=== PATIENT | female | born 1950 | race Caucasian/White ===

== ENCOUNTER 2020-11-19 12:20 | Day surgery (SDC) | payer MEDICARE, OTHER ==
[2020-11-19] MEDS ORDERED: LIDOCAINE HCL 2% 100 MG/5 ML IJ ONE (12:21)
[2020-11-19] MEDS ORDERED: Depo-Medrol 40 MG/ML IM ONE (12:21)
[2020-11-19] MEDS ORDERED: Pepcid 20 MG VIAL IV ONE (13:48)
[2020-11-19] MEDS ORDERED: DIPRIVAN 200 MG/20 ML IV ONE ×2 (14:17→14:31)
[2020-11-19] MEDS ORDERED: Ketamine HCl 50 MG/ML ONE (14:17)
[2020-11-19] MEDS ORDERED: MORPHINE SULFATE 10 MG/ML ONE (14:45)
[2020-11-19] MEDS ORDERED: Lactated Ringers 1,000 ML IV ONE (15:04)
--- NOTE | 2020-11-19 16:47 | XRAY ---
Indication: Bilateral L4-S1 MBB. Intraoperative fluoroscopy was provided for 55 seconds. 4 digital spot images submitted for interpretation demonstrates posterior needle tips projecting over the expected left and right L4-S1 nerve roots. Correlate with intraoperative findings/report. Incidental incompletely visualized multilevel bilateral posterior pedicle screws, Cardenas rods, and intervertebral spacers.
--- NOTE | 2020-11-19 16:53 | XRAY ---
55 seconds of fluoroscopy was used during surgery for a bilateral L4-L5 and L5-S1 MBB.
== END 2020-11-19 14:57 | disposition home or self-care (01) ==
LOC: SDC-PAIN 12:20
PROVIDERS: ATTEND Psychiatry & Neurology Pain Medicine
DX: M47.816 Spondylosis without myelopathy or radiculopathy, lumbar region (principal); I10 Essential (primary) hypertension; M79.7 Fibromyalgia; E03.9 Hypothyroidism, unspecified; Z79.899 Other long term (current) drug therapy
CPT/HCPCS: 64493; 64494; 72020; 77002; J1030; J2270; J2704

== ENCOUNTER 2020-12-17 08:48 | Day surgery (SDC) | payer MEDICARE, OTHER ==
[2020-12-17] MEDS ORDERED: BUPIVACAINE 0.5% VIAL IJ ONE (08:49)
[2020-12-17] MEDS ORDERED: Depo-Medrol 40 MG/ML IM ONE (08:49)
[2020-12-17] MEDS ORDERED: DIPRIVAN 200 MG/20 ML IV ONE ×2 (10:40→10:49)
[2020-12-17] MEDS ORDERED: Ketamine HCl 50 MG/ML ONE (10:40)
[2020-12-17] MEDS ORDERED: Lactated Ringers 1,000 ML IV ONE (11:01)
--- NOTE | 2020-12-17 11:47 | XRAY ---
Indication: Left hip injection. Intraoperative fluoroscopy provided for 16 seconds. Single digital spot image submitted for interpretation demonstrates needle tip projecting just lateral to the left greater trochanter. Small amount of contrast injected for needle tip placement. Correlate with intraoperative findings/report.
--- NOTE | 2020-12-17 11:50 | XRAY ---
Indication: Right hip injection. Intraoperative fluoroscopy provided for 22 seconds. Single digital spot image submitted for interpretation demonstrates needle tip projecting just lateral to the right greater trochanter. Small amount of contrast injected for needle tip placement. Correlate with intraoperative findings/report.
--- NOTE | 2020-12-17 11:50 | XRAY ---
16 seconds fluoroscopy time in surgery for injection of the greater trochanter of the right hip.
--- NOTE | 2020-12-17 11:59 | XRAY ---
22 seconds fluoroscopy time in surgery for injection of the greater trochanter of the right hip.
== END 2020-12-17 11:14 | disposition home or self-care (01) ==
LOC: SDC-PAIN 08:48
PROVIDERS: ATTEND Psychiatry & Neurology Pain Medicine
DX: M70.62 Trochanteric bursitis, left hip (principal); M70.61 Trochanteric bursitis, right hip; I10 Essential (primary) hypertension; M79.7 Fibromyalgia; E03.9 Hypothyroidism, unspecified; Z79.899 Other long term (current) drug therapy
CPT/HCPCS: 20610; 73501; 77002; J1030; J2704; Q9966

== ENCOUNTER 2021-02-11 09:33 | Day surgery (SDC) | payer MEDICARE, OTHER ==
[2021-02-11] MEDS ORDERED: Depo-Medrol 40 MG/ML IM ONE (09:34)
[2021-02-11] MEDS ORDERED: Sodium Chloride 0.9(Preservative Free) 10 ML IJ ONE (09:34)
[2021-02-11] MEDS ORDERED: DIPRIVAN 200 MG/20 ML IV ONE ×2 (10:28→10:50)
[2021-02-11] MEDS ORDERED: TORAdol 30 mg Injection ONE (10:56)
--- NOTE | 2021-02-11 11:27 | XRAY ---
Indication: Right L4-S1 transforaminal MARIAM. Intraoperative fluoroscopy provided for 1 minute 24 seconds. Single digital spot image submitted for interpretation demonstrates posterior midline needle tip projecting over mid to inferior sacrum. Small amount of contrast injected for needle tip placement. Correlate with intraoperative findings/report. Incidental incompletely visualized bilateral lumbosacral fusion hardware.
--- NOTE | 2021-02-11 11:29 | XRAY ---
1 minute and 24 seconds fluoroscopy time in surgery for right L4-S1 transforaminal MARIAM.
[2021-02-11] MEDS ORDERED: Lactated Ringers 1,000 ML IV ONE (16:10)
== END 2021-02-11 11:04 | disposition home or self-care (01) ==
LOC: SDC-PAIN 09:33
PROVIDERS: ATTEND Psychiatry & Neurology Pain Medicine
DX: M54.16 Radiculopathy, lumbar region (principal); I10 Essential (primary) hypertension; M79.7 Fibromyalgia; E03.9 Hypothyroidism, unspecified; Z79.899 Other long term (current) drug therapy
CPT/HCPCS: 62323; 72100; 77003; J1030; J1885; J2704; Q9966

== ENCOUNTER 2023-01-05 13:15 | Day surgery (SDC) | payer MEDICARE, OTHER ==
[2023-01-05] MEDS ORDERED: LIDOCAINE HCL 1% 50 MG/5 ML VL PF IJ ONE (13:16)
[2023-01-05] MEDS ORDERED: Sodium Chloride 0.9(Preservative Free) 10 ML IJ ONE (13:16)
[2023-01-05] MEDS ORDERED: Depo-Medrol 40 MG/ML IM ONE (13:16)
--- NOTE | 2023-01-05 16:45 | XRAY ---
Indication: Lumbar MARIAM. Intraoperative fluoroscopy provided for 24 seconds. 3 digital spot images submitted for interpretation demonstrates posterior needle tip projecting just posterior the thoracolumbar junction. Small amount of contrast injected for needle tip placement. Correlate with intraoperative findings/report. Incidental incompletely visualized bilateral lower lumbar fusion hardware.
--- NOTE | 2023-01-05 16:49 | XRAY ---
24 seconds of fluoroscopy was used in surgery for a lumbar MARIAM.
== END 2023-01-05 16:12 | disposition home or self-care (01) ==
LOC: SDC-PAIN 13:15
PROVIDERS: ATTEND Psychiatry & Neurology Pain Medicine
DX: M54.16 Radiculopathy, lumbar region (principal); Z79.899 Other long term (current) drug therapy
CPT/HCPCS: 62323; 72100; 77003; J1030; J2001; Q9966